=== PATIENT | female | born 1995 | race Caucasian/White ===

== ENCOUNTER → 2018-02-24 | Outpatient (CLI) | payer BC ==
[~2018-02-24] VITALS: Ht 172.7 cm; Wt 97.7 kg
[~2018-02-24] MED LIST: FLUOXETINE PO; SEROQUEL PO; TRAZODONE100 MG PO
[2018-02-24 14:00] VITALS: BP 108/77
== END ==
LOC: AMSURD 13:51
DX: Z00.00 Encounter for general adult medical examination without abnormal findings (principal)

== ENCOUNTER 2019-07-18 04:55 | Emergency (ER) | payer BC ==
[~2019-07-18] VITALS: Ht 170.2 cm; Wt 95.9 kg
[2019-07-18 06:50] LABS: HEMATOCRIT 36.4 % (37.0-47.0); LYMPH# 2.1 (1.50-4.00); MEAN CELL VOLUME 87 fl (78-100); MEAN CORPUSCULAR HEMOGLOBIN 29 pg (27-31); MEAN CORPUSCULAR HGB CONC 33 g/dL (33-37); MEAN PLATELET VOLUME 11.5 fl (7.4-10.4); MONO # 0.5 (0.20-0.80); NEU # 6.7 (1.40-6.50); PLATELET COUNT 169 K/mm3 (130-400); RED BLOOD COUNT 4.17 M/mm3 (4.10-5.30); RED CELL DISTRIBUTION WIDTH 13.5 % (11.5-14.5); WHITE BLOOD COUNT 9.3 K/mm3 (4.8-10.8)
[2019-07-18 07:03] LABS: POTASSIUM 3.7 mmol/L (3.5-5.1)
[2019-07-18 07:04] LABS: CALCIUM 8.8 mg/dL (8.3-10.5)
[2019-07-18 07:05] LABS: TOTAL PROTEIN 6.9 g/dL (6.4-8.3)
[2019-07-18 07:07] LABS: TOTAL BILIRUBIN 0.8 mg/dL (0.2-1.2)
[2019-07-18 07:19] LABS: URINE COLOR YELLOW
[2019-07-18 07:20] LABS: PH-URINE 5.5 (5.0 - 8.0); URINE APPEARANCE CLOUDY; URINE BILIRUBIN NEGATIVE (NEGATIVE); URINE BLOOD NEGATIVE (NEGATIVE); URINE GLUCOSE NEGATIVE (NEGATIVE); URINE KETONE NEGATIVE (NEGATIVE); URINE LEUKOCYTE ESTERASE TRACE (NEGATIVE); URINE NITRATE NEGATIVE (NEGATIVE); URINE PROTEIN(semi-quant) NEGATIVE (NEGATIVE); URINE UROBILINOGEN NORMAL (NORMAL)
[2019-07-18 07:25] LABS: URINE MUCUS PRESENT (NOT PRESENT)
[2019-07-18 07:43] VITALS: BP 109/83
== END 2019-07-18 07:55 | disposition short-term general hospital (02) ==
LOC: ED 04:55
PROVIDERS: Nurse Practitioner
DX: O20.9 Hemorrhage in early pregnancy, unspecified (principal); Z87.891 Personal history of nicotine dependence; Z3A.11 11 weeks gestation of pregnancy
CPT/HCPCS: J2270; J2405; J3010; J7030